=== PATIENT | female | born 1970 | race Caucasian/White ===

== ENCOUNTER 2018-11-05 10:58 | Emergency (ER) | payer OTHER ==
[~2018-11-05] VITALS: Ht 172.7 cm; Wt 94.3 kg
[2018-11-05 11:54] VITALS: BP 125/88; Ht 172.7 cm; Wt 94.3 kg
== END 2018-11-05 13:37 | disposition left against medical advice (07) ==
LOC: ED 10:58
DX: Z53.21 Procedure and treatment not carried out due to patient leaving prior to being seen by health care provider (principal)